=== PATIENT | male | born 1985 | race Hispanic/Latino ===

== ENCOUNTER 2019-03-10 12:30 | Emergency (ER) | payer BC ==
[~2019-03-10] VITALS: Ht 162.6 cm; Wt 83.3 kg
[2019-03-10] MEDS ORDERED: TETRACAINE HCL 0.5% OPTH SOLN 4 ML BTL OP ONE (14:00)
[2019-03-10] MEDS ORDERED: FLUORESCEIN SOD(OPTH) 1 MG STRP ONE (14:04)
[2019-03-10] MEDS ORDERED: POLYTRIM EYE DR10 ML OD (14:06)
[2019-03-10 19:55] VITALS: BP 116/83
== END 2019-03-10 14:20 | disposition home or self-care (01) ==
LOC: FSED 12:30
DX: H57.11 Ocular pain, right eye (principal)
CPT/HCPCS: 99283